=== PATIENT | female | born 1975 ===

== ENCOUNTER 2023-09-14 23:24 | Emergency (ER) | payer BC, OTHER ==
[~2023-09-14] VITALS: Ht 165.1 cm; Wt 54.4 kg
[2023-09-15] MEDS ORDERED: ACETAMINOPHEN ES 500 MG TABLET ONE (00:52)
[2023-09-15] MEDS ORDERED: SULFAMETH/TRIMETH 800/160 MG TABLET ONE (00:53)
[2023-09-15] MEDS: ACETAMINOPHEN ES 500 MG TABLET PO ONE (01:09)
[2023-09-15] MEDS: SULFAMETH/TRIMETH 800/160 MG TABLET PO ONE (01:09)
[2023-09-15] MEDS ORDERED: HYDROCODONE/APAP 10-325 MG TABLET ONE (01:11)
[2023-09-15] MEDS: HYDROCODONE/APAP 10-325 MG TABLET PO ONE (01:13)
[2023-09-15] MEDS ORDERED: IBUP-1957 PO (01:16)
[2023-09-15] MEDS ORDERED: SULF1TAB48 PO (01:16)
[2023-09-15] MEDS ORDERED: [UNRECOGNIZED DRUG - CODE] TP (01:19)
[2023-09-15 01:21] VITALS: BP 130/79; TEMP 98.6; O2SAT 100
[2023-09-15 01:24] LABS: *BILIRUBIN,URIN NEGATIVE (NEGATIVE); *CLARITY,URINE CLEAR (CLEAR); *COLOR,URINE YELLOW (YELLOW); *KETONES,URINE NEGATIVE (NEGATIVE); *PROTEIN,URINE NEGATIVE (NEGATIVE); *UROBILINOGEN,URINE 0.2 E.U./dl (NORMAL); LEUKOCYTE ESTERASE ,URINE 1+ (NEGATIVE); NITRITE, URINE POSITIVE (NEGATIVE); UGLUCOSE NEGATIVE (NEGATIVE)
[2023-09-15 01:32] LABS: *BLOOD, URINE TRACE (NEGATIVE)
[2023-09-15 02:09] LABS: BACTERIA,URINE MODERATE /HPF (NONE SEEN); SQUAMOUS EPITHELIAL CELL,UR FEW /HPF (NONE SEEN); WBC,URINE 20-50 /HPF (0-3); YEAST,URINE FEW /HPF (NONE SEEN)
== END 2023-09-15 01:22 | disposition home or self-care (01) ==
LOC: ER 23:27
DX: L02.01 Cutaneous abscess of face (principal); Z79.899 Other long term (current) drug therapy
CPT/HCPCS: A4606; A4663; A9150